=== PATIENT | female | born 1950 | race Caucasian/White ===

== ENCOUNTER → 2016-06-19 | Outpatient (CLI) | payer OTHER ==
--- NOTE | 2016-06-19 22:32 | DX ---
DEXA Bone Mineral Densitometry Clinical Indications: Family history of osteoporosis, back pain. Technique: Bone Mineral Densitometry (BMD) by Dual Energy X-Ray Absorptiometry (DEXA) was performed utilizing the Lo[employer] scanner. The lumbar spine was evaluated in the AP projection. Both hips and the nondominant forearm were evaluated in the AP projection. Images were reviewed for spinal fr acture. Comparison: 2010. AP Lumbar Spine: Vertebral bodies of L1, L2, L3, and L4 were assessed. BMD: 1.189 gm/cm2. T-score: 0 SD. Z-score: 1.9 SD. This result has increased 1.9% from 2011. AP Left Hip: Neck BMD: 0.846 gm/cm2. T-score: -1.4 SD. Z-score: 0.4 SD. This result has decreased 10.8% compared to 2010. AP Right Hip: Neck BMD: 0.837 gm/cm2. T-score: -1.4 SD. Z-score: 0.3 SD. This value has decreased 6.4% compared to 2007. AP Left Forearm, 06/13: BMD: 0.633 gm/cm2. T-score: -2.8 SD. Z-score: -1.2 SD. This result has decreased 19.4% compared to 2007. Vertebral Fracture Assessment: No significant fracture deformity. Conclusion: Considering the lowest measured site, the patient is osteoporotic. The ten year risk for any major osteoporotic fracture is 8.4% and for a hip fracture is 1.0%. Recommendations 1. Consider excluding secondary metabolic causes of bone loss. Laboratory evaluation might include hydroxy vitamin D3 level, TSH, PTH, calcium, 24-hour urine calcium, phosphorous, albumin, creatinine, alkaline phosphatase, serum electrophoresis (SPEP or UPEP), anti-tissue transglutaminase antibody le vels (celiac disease), and CBC. If secondary causes are excluded, then consider initiating treatment with a bisphosphonate (such as Fosamax, Actonel or Boniva). If the patient is unable to use an oral bisphosphonate, another agent such as IV bisphosphonates (Boniva or Reclast), teriparatide (Forteo), or a selective estrogen receptor modulator (Evista) might be considered. 2. Supplementing an insufficient diet to achieve total intakes of 1500 mg calcium and 800 Internatio nal Units of vitamin D daily should be considered. Osteoporosis prevention and treatment begins by mo difying risk factors. 3. The patient should be encouraged to participate in a regular exercise program that includes weigh tbearing and muscle strengthening regimens, as is clinically appropriate. 4. Recommend follow-up DEXA in one year to assess the efficacy of pharmacologic intervention and/or correction of appropriate secondary cause.
== END ==
LOC: FIMAGING 13:43
PROVIDERS: ATTEND Internal Medicine
DX: Z13.820 Encounter for screening for osteoporosis (principal); M81.0 Age-related osteoporosis without current pathological fracture; M54.9 Dorsalgia, unspecified; E78.2 Mixed hyperlipidemia; Z82.62 Family history of osteoporosis

== ENCOUNTER → 2016-12-22 | Outpatient (CLI) | payer OTHER | LOC: FIMAGING 08:45 | PROVIDERS: ATTEND Physician Assistant | DX: M50.823 Other cervical disc disorders at C6-C7 level (principal); M51.36 Other intervertebral disc degeneration, lumbar region; M48.02 Spinal stenosis, cervical region; M48.06 Spinal stenosis, lumbar region; M51.86 Other intervertebral disc disorders, lumbar region; M51.84 Other intervertebral disc disorders, thoracic region; M53.82 Other specified dorsopathies, cervical region; M53.86 Other specified dorsopathies, lumbar region ==

== ENCOUNTER → 2017-03-13 | Outpatient (CLI) | payer OTHER | LOC: FIMAGING 10:02 | PROVIDERS: ATTEND Neurological Surgery | DX: Z01.811 Encounter for preprocedural respiratory examination (principal); M48.061 Spinal stenosis, lumbar region without neurogenic claudication; M54.2 Cervicalgia; I51.7 Cardiomegaly ==

== ENCOUNTER → 2017-05-14 | Outpatient (CLI) | payer OTHER | LOC: FIMAGING 09:45 → EDSTATUS 09:46 | PROVIDERS: ATTEND Neurological Surgery | DX: M51.36 Other intervertebral disc degeneration, lumbar region (principal); M43.16 Spondylolisthesis, lumbar region; Z98.1 Arthrodesis status ==

== ENCOUNTER → 2017-12-14 | Outpatient (CLI) | payer OTHER | LOC: FIMAGING 09:47 | PROVIDERS: ATTEND Internal Medicine | DX: Z12.31 Encounter for screening mammogram for malignant neoplasm of breast (principal) ==

== ENCOUNTER → 2018-06-24 | Outpatient (CLI) | payer OTHER | LOC: FIMAGING 10:08 | PROVIDERS: ATTEND Internal Medicine | DX: Z13.820 Encounter for screening for osteoporosis (principal); M81.0 Age-related osteoporosis without current pathological fracture; Z78.0 Asymptomatic menopausal state ==

== ENCOUNTER 2018-10-05 14:48 | Emergency (ER) | payer OTHER ==
--- NOTE | 2018-10-05 15:32 | EDPHY ---
H & P Stated Complaint: R lower back pain since yesterday am--no urinary complaints no trauma Time Seen by Provider: 10/05/18 15:31 HPI/ROS: CHIEF COMPLAINT: Right flank pain HISTORY OF PRESENT ILLNESS: The patient is a 68 y/o female with a history of left-sided sciatica and L3-L5 fusion last year who presents with acute onset right flank pain yesterday morning. She woke up feeling normal, then later in the morning shortly after transitioning from sitting to standing she had acute, severe, right flank pain that she describes as "intense, level 10 pain." Pain did not improve with Tylenol or ibuprofen, but using 25mg of Tramadol from an old prescription did take the edge off. She has also been using a heating pack consistently on the site. Pain has never dissipated completely. She has never experienced pain like this previously and it does not feel similar to her left- sided sciatica. She has no position of relief and has mostly been walking and standing since pain began. Twisting to the right does slightly worsen pain. She has mild associated nausea. She denies acute leg weakness or paresthesias, saddles paresthesias, vomiting, fever, urinary symptoms, or rash. She mentions she hikes frequently and occasionally lifts her 2 y/o grandson, but these events did not occur in proximity to the onset of her pain. No shingles vaccine. REVIEW OF SYSTEMS: A ten system review of systems was performed and is negative with the exception of the items mentioned in the HPI. Past medical history: 1. Sciatica 2. Spondylosis Past surgical history: 1. L3-L5 fusion 2018 - Dr. Barry at [facility]; persisting left hip and gait issues Family history: Noncontributory Social history: Nonsmoker. Rare alcohol. No illicit drugs. 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 PCP: Dr. Smith General Appearance: Alert. Vital signs reviewed. Blood pressure 139/82. Standing in the room, appears uncomfortable. Eyes: Pupils equal and round, no conjunctival injection, no discharge. Anicteric. ENT, Mouth: Mucous membranes are moist, no oropharyngeal erythema or edema. Neck: No lymphadenopathy, supple. Respiratory: Lungs are clear to auscultation; no wheezes, rales, or rhonchi. Cardiovascular: Regular rate and rhythm; no murmur, rub, or gallop. Gastrointestinal: Abdomen is soft and nontender, no masses or organomegaly. Skin: Warm and dry, no rashes on exposed skin, normal color. Back: Scattered maculopapular rash on lower right back extending from midline to midaxillary line. Nontender to palpation over the thoracolumbar spine. No CVAT. Well-healed midline lumbar incision. Extremities: No lower extremity edema, no calf tenderness or swelling. Neurological: Alert and oriented. Moving all four extremities easily and equally. Sensation intact to light touch over both lower extremities. Normal strength both lower extremities. Psychiatric: Normal affect. - Medical/Surgical History Hx Asthma: No Hx Chronic Respiratory Disease: No Hx Diabetes: No Hx Cardiac Disease: No Hx Renal Disease: No Hx Cirrhosis: No Hx Alcoholism: No Hx HIV/AIDS: No Hx Splenectomy or Spleen Trauma: No Other PMH: L3-L5 fusion 2018. spondylosis. L sciatica - Social History Smoking Status: Never smoked Constitutional: Initial Vital Signs Temperature (C) 36.7 C 10/05/18 14:52 Heart Rate 60 10/05/18 14:52 Respiratory Rate 16 10/05/18 14:52 Blood Pressure 139/82 H 10/05/18 14:52 O2 Sat (%) 97 10/05/18 14:52 O2 Delivery Mode Room Air Allergies/Adverse Reactions: No Known Allergies Allergy (Verified 10/05/18 14:51) Home Medications: Medication Instructions Recorded Hydrocodone/APAP 5/325 [[place] 1 - 2 tab PO Q4 PRN #10 tab 10/05/18 5/325 (RX)] traMADol [Ultram 50 mg (*)] 50 mg PO Q4 #14 tab 10/05/18 valACYclovir [Valtrex (*)] 1,000 mg PO TID 7 Days tab 10/05/18 Medical Decision Making - Diagnostics Imaging: Discussed imaging studies w/ on call Radiologist, I viewed and interpreted images myself ED Course/Re-evaluation: This is a 68 y/o female with a history of left-sided sciatica and L3-L5 fusion who presents with a 1-day history of near-constant acute onset right flank pain with no obvious precipitating cause. She appears quite uncomfortable, but I am unable to reproduce pain with palpation. She has a slight scattered maculopapular rash on her right lower flank that could represent early shingles. Concern for kidney stone as well. Plan for IV, labs, UA, abdominal CT , and symptom management. 1L IV NS, 15mg IV Ketorolac, 100mcg IV Fentanyl ordered. Abdominal CT: no kidney stone, some constipation right side CBC and chemistries normal. No blood in her urine. She has trace leukocyte esterase and bacteria, no dysuria and I doubt that this is indicative of urinary tract infection. No evidence of pyelonephritis on her CT scan. No palpable muscle spasm on exam and she states that this pain does not feel musculoskeletal to her. She has a long history of sciatica and related back pain in is familiar with that type of discomfort. No change from baseline in her neurologic exam. 1727: Reassessed patient and discussed results. Recommend treating for possible shingles as the antiviral is most effective when starting early in the course of the illness. Plan for discharge with scripts for Valacyclovir, Tramadol, and Vicodin. She understands she can take either the Tramadol or Vicodin, but not together. Standard care and follow up instructions discussed. Return precautions given. - Data Points Laboratory Results: Laboratory Results 10/05/18 16:30 10/05/18 16:30 Medications Given: Discontinued Medications Hydrocodone Bitart/Acetaminophen ([place] 5/325mg Prepack#6) 1 btl TAKEHOME EDNOW ONE Stop: 10/05/18 17:50 Last Admin: 10/05/18 17:58 Dose: 1 btl Fentanyl (Sublimaze) 100 mcg IVP EDNOW ONE Stop: 10/05/18 16:18 Last Admin: 10/05/18 16:29 Dose: 100 mcg Sodium Chloride (Ns) 1,000 mls @ 0 mls/hr IV ONCE ONE; Wide Open PRN Reason: Protocol Stop: 10/05/18 16:30 Last Admin: 10/05/18 16:35 Dose: 1,000 mls Ketorolac Tromethamine (Toradol) 15 mg IVP EDNOW ONE Stop: 10/05/18 16:18 Last Admin: 10/05/18 16:28 Dose: 15 mg Valacyclovir HCl (Valtrex) 1,000 mg PO EDNOW ONE Stop: 10/05/18 17:50 Last Admin: 10/05/18 17:59 Dose: 1,000 mg Departure - Departure Disposition: Home, Routine, Self-Care Clinical Impression: Flank pain Shingles Qualifiers: Herpes zoster complications: without complications Qualified Code(s): B02.9 - Zoster without complications Condition: Good Instructions: Hydrocodone/Acetaminophen (By mouth), Acyclovir (By mouth), Tramadol (By mouth), Shingles (ED), Flank Pain (ED) Additional Instructions: 1. Take Valacyclovir as prescribed for possible shingles. 2. Use either Vicodin OR Tramadol, whichever controls your pain better, as prescribed. Do not take these medications concurrently. These are both opiates and can cause drowsiness and constipation. Do not use prior to driving. 3. Follow up with your primary care provider as needed for unimproved symptoms over the next few days. 4. Return to the ED for worsening of condition. Referrals: Radha Smith MD [Primary Care Provider] - As per Instructions Prescriptions: Hydrocodone/APAP 5/325 [[place] 5/325 (RX)] 1 - 2 tab PO Q4 PRN #10 tab PRN Reason: pain traMADol [Ultram 50 mg (*)] 50 mg PO Q4 #14 tab valACYclovir [Valtrex (*)] 1,000 mg PO TID 7 Days tab Report Scribed for: Kiki Bey Report Scribed by: Charleen Calixto Date of Report: 10/05/18 Time of Report: 16:21 Physician Review and Approval Statement: 10/05/18 15:31 Portions of this note were transcribed by the medical biller coder. I, Dr. Kiki Bey, personally performed the history, physical exam, and medical decision- making; and confirmed the accuracy of the information in the transcribed note.
[2018-10-05] MEDS ORDERED: fentaNYL 100 MCG/2 ML INJ IVP ONE (16:17)
[2018-10-05] MEDS ORDERED: KETOROLAC 30 MG/1 ML SDV IVP ONE (16:17)
[2018-10-05] MEDS ORDERED: NS 1,000 ML IV ONE (16:29)
[2018-10-05 16:45] LABS: PLATELET COUNT 306 10^3/uL (150-400)
[2018-10-05] MEDS ORDERED: valACYclovir 500 MG TAB PO ONE (17:49)
[2018-10-05] MEDS ORDERED: HYDROCOD/APAP 5/325 PREPACK#6 BTL TAKEHOME ONE (17:49)
[2018-10-05 18:06] VITALS: BP 139/59
== END 2018-10-05 18:04 | disposition home or self-care (01) ==
DX: R10.31 Right lower quadrant pain (principal); B02.9 Zoster without complications
CPT/HCPCS: 74176; 96374; 96375; 99285; J1885; J3010